=== PATIENT | female | born 1940 | race Caucasian/White ===

== ENCOUNTER 2017-12-08 15:51 | Inpatient (IN) | payer MEDICARE, BC ==
[~2017-12-08] VITALS: Ht 162.6 cm; Wt 60.3 kg
[2017-12-08] MEDS ORDERED: MORPHINE SULFATE 4 MG/ML SYR IV STA (15:52)
[2017-12-08] MEDS ORDERED: ONDANSETRON HCL 4 MG ORAL DISINTEGRATING TAB PO STA (15:52)
[2017-12-08] MEDS ORDERED: ULTRAM50 MG PO (16:07)
[2017-12-08] MEDS ORDERED: MORPHINE SULFATE 2 MG/ML SYR ONE (16:28)
[2017-12-08 16:50] LABS: BASOPHILS % 0.2 % (0.0-1.0); HEMOGLOBIN 13.1 g/dL (12.0-16.0); LYMPHOCYTES # (AUTO) 0.6 (1.0-3.2); LYMPHOCYTES % 4.5 % (18.0-39.1); MEAN CORPUSCULAR HEMOGLOBIN 29.2 pg (28-32); MEAN CORPUSCULAR HGB CONC 33.6 g/dL (31-35); MEAN CORPUSCULAR VOLUME 87.1 fL (81-99); MONOCYTES # (AUTO) 0.7 (0.2-0.8); MONOCYTES % 5.4 % (4.4-11.3); NEUTROPHILS # (AUTO) 11.6 (2.1-6.9); NEUTROPHILS % 89.4 % (38.7-80.0); PLATELET COUNT 243 x10e3/uL (140-360); RED BLOOD COUNT 4.48 x10e6/uL (3.6-5.1); RED CELL DISTRIBUTION WIDTH 12.7 % (11.7-14.4)
[2017-12-08 16:55] LABS: BILIRUBIN,URINE NEGATIVE (NEGATIVE); CLARITY,URINE SL CLOUDY (CLEAR); COLOR,URINE YELLOW (YELLOW); KETONES,URINE 1+ (NEGATIVE); LEUKOCYTE ESTERASE ,URINE NEGATIVE (NEGATIVE); NITRITE,URINE NEGATIVE (NEGATIVE); PROTEIN,URINE DIPSTICK NEGATIVE (NEGATIVE); URINE UROBILINOGEN 0.2 mg/dL (0.2 - 1)
[2017-12-08 16:56] LABS: INR 1.04; PARTIAL THROMBOPLASTIN TIME 28.9 seconds (23.8-35.5); PROTHROMBIN TIME 12.8 seconds (11.9-14.5)
[2017-12-08 17:06] LABS: ALANINE AMINOTRANSFERASE 14 IU/L (0-55); ALBUMIN 4.1 g/dL (3.5-5.0); ALBUMIN/GLOBULIN RATIO 1.1 (0.8-2.0); ALKALINE PHOSPHATASE 66 IU/L (40-150); ANION GAP 19.4 mmol/L (8-16); BLOOD UREA NITROGEN 13 mg/dL (7-26); BUN/CREATININE RATIO 16 (6-25); CALCIUM 9.9 mg/dL (8.4-10.2); CARBON DIOXIDE 19 mmol/L (22-29); CHLORIDE 101 mmol/L (98-107); CREATINE KINASE 92 IU/L (29-168); CREATININE, SERUM 0.79 mg/dL (0.57-1.11); EST GLOMERULAR FILTRATION RATE > 60 ML/MIN (60-); GLUCOSE 151 mg/dL (74-118); POTASSIUM 3.4 mmol/L (3.5-5.1); SODIUM 136 mmol/L (136-145)
[2017-12-08 17:07] LABS: BACTERIA,URINE FEW /HPF; RBC,URINE 0-5 /HPF (0-5)
[2017-12-08 17:08] LABS: MUCUS,URINE MODERATE (RARE)
--- NOTE | 2017-12-08 17:28 | Diagnostic Imaging Report ---
Examination: CT head without contrast Clinical Indication: Fall. Head injury. Technique: Transaxial noncontrast images from the skull base through the vertex were obtained. Sagittal and coronal reformatted images were done. Comparison: None. Findings: Scalp: No abnormalities. Bones: Intact. No fractures. No blastic or lytic lesions. Brain sulci: Moderate volume loss for age for patient's age. Ventricles: Normal in size and configuration. No hydrocephalus. . Extra-axial space: No abnormalities. Parenchyma: There are mild confluent areas of low-attenuation within subcortical and periventricular white matter, nonspecific, but could represent microvascular ischemic disease. No masses, hemorrhage, or acute or chronic cortical based vascular insults. Suprasellar region: No abnormalities. Craniocervical junction: The foramen magnum is patent. No Chiari one malformation. Incidental findings: Atherosclerotic calcification of the cavernous and supraclinoid internal carotid and V4 segments of the bilateral vertebral arteries. Impression: 1. No acute intracranial abnormality. 2. Mild chronic microvascular ischemic change and moderate volume loss for age. Signed by: Dr. Melly Cerna M.D. on 12/08/2017 5:25 PM
--- NOTE | 2017-12-08 17:30 | Diagnostic Imaging Report ---
PROCEDURE: A single AP view of the chest. COMPARISON: None. INDICATIONS: FALL FINDINGS: Lines/tubes: None. Lungs: Low lung volumes. There is no evidence of pneumonia or pulmonary edema. Pleura: There is no pleural effusion or pneumothorax. Heart and mediastinum: The heart and the mediastinum are unremarkable. Bones: No acute bony abnormality. IMPRESSION: 1. No acute cardiopulmonary disease. Dictated by: Jaret Colbert M.D. on 12/08/2017 at 17:33 Electronically approved by: Jaret Colbert M.D. on 12/08/2017 at 17:33
--- NOTE | 2017-12-08 17:33 | Diagnostic Imaging Report ---
PROCEDURE:X-RAY ABDOMEN - KUB COMPARISON:None. INDICATIONS:FALL FINDINGS: There is a non-obstructed bowel-gas pattern. No signs of pneumoperitoneum. There appears to be a nondisplaced fracture of the right femoral neck. CONCLUSION: Nondisplaced fracture of the right femoral neck. Please also correlate with dedicated hip x-rays. Nonobstructive bowel gas pattern. Dictated by: Jaret Colbert M.D. on 12/08/2017 at 17:36 Electronically approved by: Jaret Colbert M.D. on 12/08/2017 at 17:36
--- NOTE | 2017-12-08 17:33 | Diagnostic Imaging Report ---
Examination: CT CERVICAL SPINE WITHOUT CONTRAST HISTORY:Neck pain. Fall. COMPARISON:None. TECHNIQUE: Multidetector helical axial images were obtained without contrast from the foramen magnum to T1. Coronal and sagittal reformatted images were done. Bone and soft tissue windows were evaluated. FINDINGS: Alignment:Normal alignment and lordosis. Vertebrae: Normal height and density. No acute fracture, infection or neoplasm. Disc space heights: Severely narrowed at C5-C6. Caliber of spinal canal: Developmentally normal. Posterior fossa and craniocervical junction: Foramen magnum patent. No Chiari 1 malformation. Soft tissues: No abnormality. Degenerative changes: C3-C4: Mild left foraminal narrowing due to uncovertebral arthropathy. No degenerative disc or canal stenosis. C5-C6: Diffuse disc osteophyte complex and bilateral uncovertebral arthropathy result in severe bilateral foraminal stenosis and mild canal stenosis. The remaining levels demonstrate no disc bulge/ herniation or foraminal or canal stenosis. IMPRESSION: 1. No acute abnormalities. 2. Degenerative changes, as above. Signed by: Dr. Melly Cerna M.D. on 12/08/2017 5:29 PM
--- NOTE | 2017-12-08 17:39 | Diagnostic Imaging Report ---
PROCEDURE:HIPS BILAT TWO VWS(+/- PELVIS) INDICATION:Fall COMPARISON:None. FINDINGS: See conclusion. CONCLUSION: Nondisplaced fracture of the right femoral neck. Dictated by: Jaret Colbert M.D. on 12/08/2017 at 17:42 Electronically approved by: Jaret Colbert M.D. on 12/08/2017 at 17:42
[2017-12-08] MEDS ORDERED: ASPIRIN 81 MG CHEW TAB PO ONE (18:00)
[2017-12-08] MEDS ORDERED: SODIUM CHLORIDE FLUSH 10 ML SYR INJ PRN (18:00)
[2017-12-08] MEDS ORDERED: POTASSIUM CHLORIDE 10 MEQ TABCR PO ONE (18:15)
[2017-12-08] MEDS ORDERED: CEFAZOLIN SOD 1 GM/NS 50ML 100 ML IV ONE (19:00)
[2017-12-08] MEDS ORDERED: CEFAZOLIN SOD 1 GM VIAL IV SCH (19:30)
--- NOTE | 2017-12-08 19:39 | History and Physical ---
CHIEF COMPLAINT: Right hip pain. HISTORY OF PRESENT ILLNESS: This is a 77-year-old white woman who suffered a mechanical fall yesterday morning. The patient underwent x-ray of the hip which revealed a nondisplaced femoral neck fracture. The patient was seen by orthopedics, namely Dr. Mary Ann Valdez, who states that the patient is a candidate for screw fixation of the right femoral neck. T PAST MEDICAL HISTORY: The patient's only past medical history is dementia. In the emergency room, the patient was found to have a white blood cell count of 13,000 with 39% segmented neutrophils. The patient's chemistries were unremarkable except for potassium low at 3.4. The patient's B-natriuretic peptide level was elevated at 147. The patient's serum bicarbonate was low at 19. Urinalysis was unremarkable except it revealed 1+ blood and 1+ ketones. Chest x-ray was unremarkable. Right hip x-ray revealed nondisplaced femoral neck fracture. The patient underwent a cervical spine x-ray which revealed degenerative disk disease. The patient with CT of the head which did not reveal any acute intracranial pathology. The patient underwent 12-lead EKG in the emergency room which did not reveal any acute ischemic changes. REVIEW OF SYSTEMS GENERAL: No fever or chills. Weight has been stable. HEENT: No headaches; no visual changes. CARDIOVASCULAR: No chest pain, no shortness of breath or cough. It is unknown whether the patient had a syncopal event prior to fall. GI: No nausea, vomiting or constipation. : No urinary tract infection type symptoms. NEUROMUSCULAR: Complains of right hip pain. PAST SURGICAL HISTORY: Previous cosmetic surgery. FAMILY HISTORY: Noncontributory. SOCIAL HISTORY: She is but her spends a significant amount of his time traveling. The patient does have an adult nephew and [id number] that do look after the patient. No history of tobacco or alcohol use. ALLERGIES: NO KNOWN DRUG ALLERGIES. MEDICATIONS: None. PHYSICAL EXAMINATION VITAL SIGNS: Blood pressure 180/90, pulse 88, respiratory rate 16, oxygen saturation 98% on room air. Temperature 97.9. Height 5 feet, 6 inches; weight 135 pounds. BMI is 21. GENERAL: She is awake, alert and fully oriented and in no distress. She is pleasant and cooperative to the exam. She is oriented to herself, not time or place. She gets confused easily. INTEGUMENT: Skin is warm and dry. No pallor, jaundice, diaphoresis. HEENT: Anicteric sclerae with moist mucous membranes. NECK: Supple with no evidence of jugular venous distention. CARDIOVASCULAR: Distant heart sounds. Regular rate and rhythm. LUNGS: Benign. EXTREMITIES: There is length discrepancy in the lower extremities with the right being shorter than the left. NEUROLOGIC: No gross focal deficits appreciated. DIAGNOSES 1. Right femoral neck fracture (nondisplaced) secondary to mechanical fall. 2. Alzheimer's dementia. 3. Hypertensive heart disease. PLAN: 1. Pain control. 2. Consult orthopedics. 3. Scott's traction. 4. Blood pressure monitoring and control. 5. Tentative surgery tomorrow. I spent 45 minutes in the care of this patient. Job#: [id number] GH
--- OUTSIDE RECORDS SUMMARY | 2017-12-08 20:43 | XMS REPORT ---
Author Author [facility] Address Unknown Phone Unavailable Care Team Providers Care Turntable Engineer Name Role Phone JOCELYN STEVENS Unavailable Unavailable Problems This patient has no known problems. Allergies, Adverse Reactions, Alerts This patient has no known allergies or adverse reactions. Medications This patient has no known medications. Results Test Description Test Time Test Comments Text Results Atomic Results Result Comments ABDOMEN-1VIEW (KUB) [place] [address] Patient Name: LUIS MOODY MR #: [id number] : 1940 Age/Sex: 77/F Req #: [id number] Adm Physician: Ordered by: JOCELYN STEVENS DO Report #: [id number] Location: ER Room/Bed: Procedure: [id number] DX/ABDOMEN-1VIEW (KUB) Exam Date: Exam Time: REPORT STATUS: Signed PROCEDURE: X-RAY ABDOMEN - KUB COMPARISON: None. INDICATIONS: FALL FINDINGS: There is a non-obstructed bowel-gas pattern. No signs of pneumoperitoneum. There appears to be a nondisplaced fracture of the right femoral neck. CONCLUSION: Nondisplaced fracture of the right femoral neck. Please also correlate with dedicated hip x-rays. Nonobstructive bowel gas pattern. Dictated by: Jaret Jack M.D. on 12/08/2017 at 17:36 Electronically approved by: Jaret Jack M.D. on 12/08/2017 at 17:36 Dictated By: JARET JACK MD 35 Transcribed By: TAMI on 12/08/171735 COPY TO: JOCELYN STEVENS DO CT CERVICAL SPINE WO [place] [address] Patient Name: LUIS MOODY MR #: [id number] : 1940 Age/Sex: 77/F Req #: [id number] Adm Physician: Ordered by: JOCELYN STEVENS DO Report #: [id number] Location: ER Room/Bed: Procedure: [id number] CT/CT CERVICAL SPINE WO Exam Date: 12/08/17 Exam Time: 1658 REPORT STATUS: Signed Examination: CT CERVICAL SPINE WITHOUT CONTRAST HISTORY:Neck pain. Fall. COMPARISON: None. TECHNIQUE: Multidetector helical axial images were obtained without contrast from the foramen magnum to T1. Coronal and sagittal reformatted images were done. Bone and soft tissue windows were evaluated. FINDINGS : Alignment:Normal alignment and lordosis. Vertebrae: Normal height and density. No acute fracture, infection or neoplasm. Disc space heights: Severely narrowed at C5-C6. Caliber of spinal canal: Developmentally normal. Posterior fossa and craniocervical junction: Foramen magnum patent. No Chiari 1 malformation. Soft tissues: No abnormality. Degenerative changes: C3-C4: Mild left foraminal narrowing due to uncovertebral arthropathy. No degenerative disc or canal stenosis. C5-C6: Diffuse disc osteophyte complex and bilateral uncovertebral arthropathy result in severe bilateral foraminal stenosis and mild canal stenosis. The remaining levels demonstrate no disc bulge/ herniation or foraminal or canal stenosis. IMPRESSION: 1. No acute abnormalities. 2. Degenerative changes, as above. Signed by: Dr. Melly Cerna M.D. on 12/08/2017 5:29 PM Dictated By: MELLY STOVALL MD 28 Transcribed By: KEITH on 12/08/171728 COPY TO: JOCELYN STEVENS DO CT BRAIN WO [place] [address] Patient Name: LUIS MOODY MR #: [id number] : 1940 Age/Sex: 77/F Req #: [id number] Adm Physician: Ordered by: JOCELYN STEVENS DO Report #: [id number] Location: ER Room/Bed: Procedure: [id number] CT/CT BRAIN WO Exam Date: 12/08/17 Exam Time: 1658 REPORT STATUS: Signed Examination: CT head without contrast Clinical Indication: Fall. Head injury. Technique: Transaxial noncontrast images from the skull base through the vertex were obtained. Sagittal and coronal reformatted images were done. Comparison: None. Findings: Scalp: No abnormalities. Bones: Intact. No fractures. No blastic or lytic lesions. Brain sulci: Moderate volume loss for age for patient's age. Ventricles: Normal in size and configuration. No hydrocephalus. . Extra-axial space : No abnormalities. Parenchyma: There are mild confluent areas of low- attenuation within subcortical and periventricular white matter, nonspecific, but could represent microvascular ischemic disease. No masses, hemorrhage, or acute or chronic cortical based vascular insults. Suprasellar region: No abnormalities. Craniocervical junction: The foramen magnum is patent. No Chiari one malformation. Incidental findings: Atherosclerotic calcification of the cavernous and supraclinoid internal carotid and V4 segments of the bilateral vertebral arteries. Impression: 1. No acute intracranial abnormality. 2. Mild chronic microvascular ischemic change and moderate volume loss for age. Signed by: Dr. Melly Cerna M.D. on 12/08/2017 5:25 PM Dictated By: MELLY STOVALL MD 24 Transcribed By: KEITH on 12/08/171724 COPY TO: JOCELYN STEVENS DO CHEST SINGLE (PORTABLE) [place] [address] Patient Name: LUIS MOODY MR #: [id number] : 1940 Age/Sex: 77/F Req #: [id number] Adm Physician: Ordered by: JOCELYN STEVENS DO Report #: [id number] Location: ER Room/Bed: Procedure: [id number] DX/CHEST SINGLE (PORTABLE) Exam Date: Exam Time: REPORT STATUS: Signed PROCEDURE: A single AP view of the chest. COMPARISON: None. INDICATIONS: FALL FINDINGS: Lines/tubes: None. Lungs: Low lung volumes. There is no evidence of pneumonia or pulmonary edema. Pleura: There is no pleural effusion or pneumothorax. Heart and mediastinum: The heart and the mediastinum are unremarkable. Bones: No acute bony abnormality. IMPRESSION: 1. No acute cardiopulmonary disease. Dictated by: Jaret Jack M.D. on 12/08/2017 at 17:33 Electronically approved by: Jaret Jack M.D. on 12/08/2017 at 17:33 Dictated By: JARET JACK MD 32 Transcribed By: TAMI on 12/08/171732 COPY TO: JOCELYN STEVENS DO HIPS BILAT TWO VWS(+/- PELVIS) [place] [address] Patient Name: LUIS MOODY MR #: [id number] : 1940 Age/Sex: 77/F Req #: [id number] Adm Physician: Ordered by: JOCELYN STEVENS DO Report #: [id number] Location: ER Room/Bed: Procedure: [id number] DX/HIPS BILAT TWO VWS(+/- PELVIS) Exam Date: Exam Time: REPORT STATUS: Signed PROCEDURE: HIPS BILAT TWO VWS(+/- PELVIS) INDICATION: Fall COMPARISON: None. FINDINGS: See conclusion. CONCLUSION: Nondisplaced fracture of the right femoral neck. Dictated by: Jaret Jack M.D. on 2017 at 17:42 Electronically approved by: Jaret Jack M.D. on 2017 at 17:42 Dictated By: JARET JACK MD 41 Transcribed By: TAMI on 12/08/171741 COPY TO: JOCELYN STEVENS DO
[2017-12-08 21:00] VITALS: BP 174/75
[2017-12-08] MEDS ORDERED: ONDANSETRON HCL INJ 2 MG/ML VIAL IV PRN (22:15)
[2017-12-08] MEDS: MORPHINE SULFATE 2 MG/ML SYR IV PRN (22:30)
[2017-12-08 23:25] VITALS: BP 174/75
[2017-12-08 23:32] VITALS: BP 174/75
[2017-12-08] MEDS ORDERED: SODIUM CHLORIDE 0.9% 1000ML 1,000 ML IV SCH (23:59)
[2017-12-09] VITALS (7 sets, daily range): BP systolic 129–151; BP diastolic 61–78
[2017-12-09] MEDS: MORPHINE SULFATE 2 MG/ML SYR IV PRN (04:30)
[2017-12-09 06:30] LABS: BASOPHILS % 0.3 % (0.0-1.0); EOSINOPHILS % 0.3 % (0.0-6.0); HEMATOCRIT 36.1 % (34.2-44.1); HEMOGLOBIN 11.7 g/dL (12.0-16.0); LYMPHOCYTES # (AUTO) 1.1 (1.0-3.2); LYMPHOCYTES % 11.9 % (18.0-39.1); MEAN CORPUSCULAR HEMOGLOBIN 29.5 pg (28-32); MEAN CORPUSCULAR HGB CONC 32.4 g/dL (31-35); MEAN CORPUSCULAR VOLUME 91.2 fL (81-99); MONOCYTES # (AUTO) 0.7 (0.2-0.8); MONOCYTES % 7.4 % (4.4-11.3); NEUTROPHILS # (AUTO) 7.4 (2.1-6.9); PLATELET COUNT 184 x10e3/uL (140-360); RED BLOOD COUNT 3.96 x10e6/uL (3.6-5.1)
[2017-12-09 06:54] LABS: ANION GAP 11.8 mmol/L (8-16); BLOOD UREA NITROGEN 10 mg/dL (7-26); BUN/CREATININE RATIO 14 (6-25); CALCIUM 9.3 mg/dL (8.4-10.2); CARBON DIOXIDE 23 mmol/L (22-29); CHLORIDE 102 mmol/L (98-107); CHOL/HDL RATIO 3.2 (3.0-3.6); CHOLESTEROL 215 MD/DL (0-199); CREATININE, SERUM 0.72 mg/dL (0.57-1.11); EST GLOMERULAR FILTRATION RATE > 60 ML/MIN (60-); GLUCOSE 101 mg/dL (74-118); HDL CHOLESTEROL 67 MG/DL (40-60); LDL CHOLESTEROL 133 MG/DL (60-130); MAGNESIUM 1.6 MG/DL (1.3-2.1); PHOSPHORUS 3.1 MG/DL (2.3-4.7); POTASSIUM 3.8 mmol/L (3.5-5.1); SODIUM 133 mmol/L (136-145); TRIGLYCERIDES 77 MG/DL (0-149)
[2017-12-09 07:14] LABS: CREATINE KINASE MB 1.8 ng/mL (0-5.0)
[2017-12-09] MEDS ORDERED: BACITRACIN 50,000 UNIT VIAL ONE (10:59)
[2017-12-09] MEDS ORDERED: CEFAZOLIN SOD 1 GM VIAL ONE (11:47)
[2017-12-09] MEDS ORDERED: SODIUM CHLORIDE 0.9% 1000ML 1,000 ML IV SCH (12:48)
[2017-12-09] MEDS ORDERED: ONDANSETRON HCL INJ 2 MG/ML VIAL IV PRN (13:00)
[2017-12-09] MEDS ORDERED: FENTANYL CITRATE/PF 100MCG/2 ML INJ ONE ×2 (13:26→18:40)
[2017-12-09] MEDS ORDERED: CEFAZOLIN SOD 1 GM/NS 50ML 50 ML IV SCH (14:00)
[2017-12-09] MEDS ORDERED: CEFAZOLIN SOD 1 GM VIAL IV SCH ×2 (14:00→19:00)
--- NOTE | 2017-12-09 14:01 | Diagnostic Imaging Report ---
HIP RIGHT ONE VW (+/- PELVIS) HISTORY: Right hip pain today, postop. COMPARISON: None available. FINDINGS: Bones: ORIF of the right femur with three osseous screws without evidence of hardware fracture or loosening. Osseous alignment is within normal limits. Joints: Mild degenerative changes of the hips. Soft tissues: Postoperative changes in the right hip with subcutaneous emphysema and overlying skin stacy. IMPRESSION: Expected postoperative changes of the right hip without radiographic complication. Signed by: DR. Volodymyr Ortiz MD on 12/09/2017 1:58 PM
[2017-12-09] MEDS ORDERED: SEVOFLURANE INHAL SOLN 250 ML PEN BTL ONE (18:13)
[2017-12-09] MEDS ORDERED: LIDOCAINE HCL 2% LOCAL INJ 5 ML SDV VIAL INJ ONE (18:13)
[2017-12-09] MEDS ORDERED: PROPOFOL IV EMULSION 10 MG/ML 20 ML VIAL ONE (18:13)
[2017-12-09] MEDS ORDERED: ONDANSETRON HCL INJ 2 MG/ML VIAL ONE (18:13)
[2017-12-09] MEDS ORDERED: DEXAMETHASONE SOD PHOS INJ 4 MG/ML VIAL ONE (18:13)
[2017-12-09] MEDS: CEFAZOLIN SOD 1 GM VIAL IV SCH (20:51)
[2017-12-09] MEDS: TEMAZEPAM 15 MG CAP PO PRN (20:51)
[2017-12-10] VITALS (9 sets, daily range): BP systolic 118–167; BP diastolic 57–76
[2017-12-10] MEDS: HYDROCODONE/APAP 5MG-325MG TAB PO PRN ×2 (04:05→19:58)
[2017-12-10] MEDS: CEFAZOLIN SOD 1 GM VIAL IV SCH ×2 (04:10→12:30)
[2017-12-10 06:29] LABS: BASOPHILS % 0.4 % (0.0-1.0); EOSINOPHILS # (AUTO) 0.1 (0.0-0.4); EOSINOPHILS % 0.6 % (0.0-6.0); HEMATOCRIT 28.3 % (34.2-44.1); HEMOGLOBIN 9.4 g/dL (12.0-16.0); LYMPHOCYTES # (AUTO) 1.6 (1.0-3.2); LYMPHOCYTES % 18.3 % (18.0-39.1); MEAN CORPUSCULAR HEMOGLOBIN 29.2 pg (28-32); MEAN CORPUSCULAR HGB CONC 33.2 g/dL (31-35); MEAN CORPUSCULAR VOLUME 87.9 fL (81-99); MONOCYTES # (AUTO) 0.8 (0.2-0.8); NEUTROPHILS # (AUTO) 6.1 (2.1-6.9); NEUTROPHILS % 71.5 % (38.7-80.0); PLATELET COUNT 179 x10e3/uL (140-360); RED BLOOD COUNT 3.22 x10e6/uL (3.6-5.1); RED CELL DISTRIBUTION WIDTH 12.8 % (11.7-14.4)
[2017-12-10 07:06] LABS: ANION GAP 11.3 mmol/L (8-16); BLOOD UREA NITROGEN 12 mg/dL (7-26); BUN/CREATININE RATIO 17 (6-25); CALCIUM 8.4 mg/dL (8.4-10.2); CARBON DIOXIDE 23 mmol/L (22-29); CHLORIDE 104 mmol/L (98-107); CREATININE, SERUM 0.71 mg/dL (0.57-1.11); EST GLOMERULAR FILTRATION RATE > 60 ML/MIN (60-); GLUCOSE 98 mg/dL (74-118); POTASSIUM 3.3 mmol/L (3.5-5.1); SODIUM 135 mmol/L (136-145)
[2017-12-10] MEDS ORDERED: POTASSIUM CHLORIDE 10 MEQ TABCR PO ONE (12:00)
[2017-12-10] MEDS: RIVAROXABAN 10 MG TABLET PO SCH (17:09)
[2017-12-10] MEDS ORDERED: ONDANSETRON HCL 4 MG ORAL DISINTEGRATING TAB ONE (18:43)
[2017-12-10] MEDS ORDERED: ONDANSETRON HCL 4 MG ORAL DISINTEGRATING TAB PO PRN (19:00)
[2017-12-10] MEDS: TEMAZEPAM 15 MG CAP PO PRN (19:50)
[2017-12-11] VITALS (7 sets, daily range): BP systolic 140–155; BP diastolic 63–92
[2017-12-11] MEDS: HYDROCODONE/APAP 5MG-325MG TAB PO PRN ×3 (05:59→19:06)
[2017-12-11 06:57] LABS: BASOPHILS # (AUTO) 0.1 (0.0-0.1); BASOPHILS % 0.9 % (0.0-1.0); EOSINOPHILS # (AUTO) 0.3 (0.0-0.4); EOSINOPHILS % 3.7 % (0.0-6.0); HEMATOCRIT 30.2 % (34.2-44.1); HEMOGLOBIN 9.9 g/dL (12.0-16.0); LYMPHOCYTES # (AUTO) 1.5 (1.0-3.2); LYMPHOCYTES % 21.7 % (18.0-39.1); MEAN CORPUSCULAR HEMOGLOBIN 29.3 pg (28-32); MEAN CORPUSCULAR HGB CONC 32.8 g/dL (31-35); MEAN CORPUSCULAR VOLUME 89.3 fL (81-99); MONOCYTES # (AUTO) 0.7 (0.2-0.8); MONOCYTES % 9.7 % (4.4-11.3); NEUTROPHILS # (AUTO) 4.3 (2.1-6.9); NEUTROPHILS % 63.7 % (38.7-80.0); PLATELET COUNT 209 x10e3/uL (140-360); RED BLOOD COUNT 3.38 x10e6/uL (3.6-5.1); RED CELL DISTRIBUTION WIDTH 12.9 % (11.7-14.4)
[2017-12-11 07:23] LABS: ANION GAP 10.8 mmol/L (8-16); BLOOD UREA NITROGEN 11 mg/dL (7-26); BUN/CREATININE RATIO 15 (6-25); CALCIUM 8.5 mg/dL (8.4-10.2); CARBON DIOXIDE 27 mmol/L (22-29); CHLORIDE 105 mmol/L (98-107); CREATININE, SERUM 0.71 mg/dL (0.57-1.11); EST GLOMERULAR FILTRATION RATE > 60 ML/MIN (60-); GLUCOSE 98 mg/dL (74-118); POTASSIUM 3.8 mmol/L (3.5-5.1); SODIUM 139 mmol/L (136-145)
[2017-12-11] MEDS: RIVAROXABAN 10 MG TABLET PO SCH (16:57)
[2017-12-11] MEDS: TEMAZEPAM 15 MG CAP PO PRN (21:16)
[2017-12-12] VITALS: BP 151/79
[2017-12-12 04:00] VITALS: BP 179/80
[2017-12-12] MEDS: HYDROCODONE/APAP 5MG-325MG TAB PO PRN ×2 (06:30→12:24)
[2017-12-12 07:18] LABS: BASOPHILS % 0.3 % (0.0-1.0); EOSINOPHILS # (AUTO) 0.3 (0.0-0.4); EOSINOPHILS % 4.5 % (0.0-6.0); HEMOGLOBIN 10.1 g/dL (12.0-16.0); LYMPHOCYTES % 18.1 % (18.0-39.1); MEAN CORPUSCULAR HEMOGLOBIN 29.4 pg (28-32); MEAN CORPUSCULAR HGB CONC 32.6 g/dL (31-35); MEAN CORPUSCULAR VOLUME 90.1 fL (81-99); MONOCYTES # (AUTO) 0.5 (0.2-0.8); MONOCYTES % 9.2 % (4.4-11.3); NEUTROPHILS # (AUTO) 3.9 (2.1-6.9); NEUTROPHILS % 67.4 % (38.7-80.0); PLATELET COUNT 231 x10e3/uL (140-360); RED BLOOD COUNT 3.44 x10e6/uL (3.6-5.1); RED CELL DISTRIBUTION WIDTH 12.8 % (11.7-14.4)
[2017-12-12 07:30] VITALS: BP 179/80
[2017-12-12 07:35] LABS: ANION GAP 10.9 mmol/L (8-16); BLOOD UREA NITROGEN 10 mg/dL (7-26); BUN/CREATININE RATIO 15 (6-25); CALCIUM 8.9 mg/dL (8.4-10.2); CARBON DIOXIDE 30 mmol/L (22-29); CHLORIDE 102 mmol/L (98-107); CREATININE, SERUM 0.68 mg/dL (0.57-1.11); EST GLOMERULAR FILTRATION RATE > 60 ML/MIN (60-); GLUCOSE 109 mg/dL (74-118); POTASSIUM 3.9 mmol/L (3.5-5.1); SODIUM 139 mmol/L (136-145)
[2017-12-12 07:58] VITALS: BP 136/65
--- NOTE | 2017-12-12 08:42 | Discharge Summary ---
ADMITTING DIAGNOSES 1. Right femoral neck fracture secondary to mechanical fall. 2. Mild to moderate dementia. 3. Hypertension. DISCHARGE DIAGNOSES 1. Status post right femoral neck percutaneous screw placement. 2. Moderate dementia. 3. Hypertension. 4. Urinary retention, required Ogden catheter placement. HOSPITAL COURSE: This is a 77-year-old white woman who was initially admitted to [facility] with a diagnosis of right femoral neck fracture secondary to mechanical fall. During this hospitalization, the patient underwent successful right hip percutaneous screw placement to repair the femoral neck fracture. The surgery was performed by Dr. Valdez. The patient tolerated the surgery well. The patient's hospitalization was unremarkable. The patient did participate in physical therapy during this hospitalization, but she can only perform toe-touch weightbearing for the next 6 to 8 weeks as per orthopedic surgery's recommendations. The patient's hospitalization was unremarkable. The patient's condition on discharge was stable. The decision was made to transfer the patient to a senior care facility. The patient had a Ogden catheter placed during this hospitalization because of urinary retention. DISCHARGE MEDICATIONS 1. Tramadol 50 mg t.i.d. scheduled. 2. [employer] 5 per 325 one every 4 hours p.r.n. intense pain, 20 prescribed, no refills. 3. Temazepam 15 mg nightly p.r.n. for insomnia. 4. Xarelto 10 mg daily for 20 more days. FOLLOWUP INSTRUCTIONS: The decision was made to transfer this patient to a local senior care facility, namely [facility], where she could undergo daily physical therapy. YURIDIA LYON MD Job#: [id number] DANNA PULIDO
[2017-12-12 12:05] VITALS: BP 125/65
--- NOTE | 2017-12-12 12:40 | Operative Report ---
DATE OF PROCEDURE: December 08, 2017 PREOPERATIVE DIAGNOSIS: Impacted right femoral neck fracture. POSTOPERATIVE DIAGNOSIS: Impacted right femoral neck fracture. PROCEDURE PERFORMED: Patient underwent a closed reduction and percutaneous pinning of the right femoral neck fracture. SCHEDULING COORDINATOR: YESSY Lora ANESTHESIA: General endotracheal intubation anesthesia. IV FLUIDS: As per the anesthesia record. DESCRIPTION OF PROCEDURE: Ms. Schmidt was taken to the operating room and placed in the supine position on the operating table. Following induction of general anesthesia as well as endotracheal intubation, the patient's right lower extremity was examined under anesthesia. She was found to have bruising and ecchymosis over the lateral aspect of the hip. The patient's right lower extremity was placed in well-padded longitudinal traction, and the left lower extremity was placed in a well-padded lithotomy position. Fluoroscopic evaluation of the hip joint demonstrated an impacted femoral neck fracture. The hip was manipulated under anesthesia, and the alignment of the hip was improved. The patient's thigh and flank were then prepped and draped in standard surgical fashion. An incision was created over the lateral aspect of the hip, and this incision was deepened to the level of the lateral side of the femur. Three pins were then inserted from lateral to medial through the neck into the head of the femur across the patient's fracture site. The positions of those pins were then checked using fluoroscopy and found to be appropriate. Measurements were taken, and implants were chosen. Screws were then passed over the pins, and compression was visualized across the patient's fracture site. The hip was again imaged fluoroscopically in both AP and lateral plane and found to be appropriate. The wound was copiously irrigated and closed in a multilayer fashion. Sterile dressings were applied, and the patient was then awakened and taken to the postanesthetic care unit in stable condition. Paul Ryder acted as the list of first job ideas for this case and was necessary for both the prepping and draping of the patient, positioning of the patient on the fracture table, as well as the retraction of soft tissues and closures of wounds that allowed this case to be successful. Job#: [id number]
[2017-12-12] MEDS ORDERED: HYDROCODONE/APAP 5MG-325MG TAB PO PRN (13:30)
[2017-12-12] MEDS ORDERED: TRAMADOL HCL 50 MG TAB PO SCH (15:00)
[2017-12-12] MEDS ORDERED: TEMAZEPAM 15 MG CAP PO SCH (21:00)
== END 2017-12-12 14:45 | DRG 481 ==
LOC: ER 15:51 → MED/SURG 20:40
PROVIDERS: ADMIT Internal Medicine; ATTEND Internal Medicine
PROC: 0QS806Z Reposition Right Femoral Shaft with Intramedullary Internal Fixation Device, Open Approach (ICD-10-PCS; principal; 2017-12-08)
DX: S72.001A Fracture of unspecified part of neck of right femur, initial encounter for closed fracture (principal); N39.0 Urinary tract infection, site not specified; R33.9 Retention of urine, unspecified; W19.XXXA Unspecified fall, initial encounter; M50.30 Other cervical disc degeneration, unspecified cervical region; G30.9 Alzheimer's disease, unspecified; F02.80 Dementia in other diseases classified elsewhere, unspecified severity, without behavioral disturbance, psychotic disturbance, mood disturbance, and anxiety; I11.9 Hypertensive heart disease without heart failure; G47.00 Insomnia, unspecified
CPT/HCPCS: 36415; 51700; 70450; 71045; 72125; 73521; 74018; 76000; 80048; 80053; 80061; 81001; 82550; 82553; 83735; 83880; 84100; 84484; 85025; 85610; 85730; 86850; 86900; 93005; 97139; 99284; C1713; J0690; J1100; J2001; J2270; J2405; J7030

== ENCOUNTER 2019-03-12 09:18 | Inpatient (IN) | payer MEDICARE, BC ==
[~2019-03-12] VITALS: Ht 162.6 cm; Wt 60.3 kg
[~2019-03-12 09:18] MED LIST: ULTRAM50 MG PO
[2019-03-12] MEDS ORDERED: ONDANSETRON HCL INJ 2MG/ML 2ML 2 MG/ML VIAL IV STA (09:37)
[2019-03-12] MEDS ORDERED: MORPHINE SULFATE 2 MG/ML SYR 1ML IV STA (09:37)
--- NOTE | 2019-03-12 11:06 | Diagnostic Imaging Report ---
EXAMINATION: Head and cervical spine CT without contrast. HISTORY: Status post fall, altered mental status, trauma, pain COMPARISON: None. TECHNIQUE: Multidetector axial images were obtained without contrast from the foramen magnum to the vertex and through the cervical spine. The images were reconstructed using brain and bone algorithms. Thin section brain images were reformatted into coronal and sagittal planes. Dose modulation, iterative reconstruction, and/or weight based adjustment of the mA/kV was utilized to reduce the radiation dose to as low as reasonably achievable. HEAD CT FINDINGS: Skull/scalp: No lytic or blastic lesions. No fractures. Parenchyma: History of matter hyperdensities, most likely nonspecific chronic microvascular ischemic changes. No mass, hemorrhage or CT evidence of acute vascular insult. Brain volume: Generalized volume loss, with particular prominence of the parietal sulci, bilateral temporal horns and bilateral hippocampal atrophy, which can be seen in patient's with Alzheimer's disease in the correct clinical setting. Ventricles: No hydrocephalus or displacement. Arteries: No density suggestive of thrombus. Dural sinuses: No abnormal density. Extra-axial spaces: No abnormal density. Foramen magnum: No mass, Chiari malformation, or basilar invagination. Sella: No obvious mass. Paranasal/mastoid sinuses: Imaged portions unremarkable. CERVICAL SPINE CT FINDINGS: Alignment:Normal alignment and lordosis. Soft tissues: Subcentimeter hypodense nodule in the right lobe of the thyroid gland which is does not require further follow-up. Vertebrae: Normal height and density. No acute fracture, infection or neoplasm. Degenerative changes: C1-C2: Degenerative changes without stenosis C2-C3: Mild facet arthrosis without stenosis C3-C4: Uncovertebral and facet arthrosis minimal left results in moderately severe left foraminal stenosis. C4-C5: Bilateral facet arthrosis without canal or foraminal stenoses C5-C6: Disc osteophyte complex formation, bilateral uncovertebral and facet arthrosis. Mild spinal canal and severe bilateral foraminal stenoses. C6-C7: Bilateral facet arthroses without significant stenoses. C7-T1: Normal IMPRESSION: Head CT: 1. No acute posttraumatic intracranial abnormalities, particularly no hemorrhage. 2. Mild chronic microvascular ischemic changes. Cervical spine CT: 1. No acute fractures or dislocations. 2. Chronic degenerative changes as described. Note: Acute post traumatic spinal cord, vascular or ligamentous injury cannot adequately be assessed with CT. Signed by: Dr. Maria De Jesus Aparicio M.D. on 03/12/2019 11:02 AM
--- NOTE | 2019-03-12 11:31 | Diagnostic Imaging Report ---
EXAM: FEMUR 2 VIEWS MINIMUM LEFT, HIP LEFT 2-3 VW (+/- PELVIS) DATE: 03/12/2019 9:37 AM INDICATION: Fall COMPARISON: Pelvic radiograph from 12/09/2017 FINDINGS: There is a mildly comminuted, displaced fracture of the left femoral neck. The femoral head is maintained within the acetabulum. The remainder of the right femur is otherwise intact. There is stable appearing hardware identified within the proximal right femur. Are stable degenerative changes of the pelvis. The visualized intraperitoneal contents are unremarkable. IMPRESSION: Acute appearing fracture of the left femoral neck as above. Signed by: Dr. Arden Varela MD on 03/12/2019 11:27 AM
--- NOTE | 2019-03-12 11:31 | NUR ---
per pt he does not want iv insertion or straight cath done at this time he would prefer to wait till Dr Valdez appears to see if it is necessary he does not want his to suffer
--- NOTE | 2019-03-12 11:33 | Diagnostic Imaging Report ---
EXAM: CHEST SINGLE (NOT PORTABLE) DATE: 03/12/2019 9:37 AM INDICATION: Fall COMPARISON: None FINDINGS: The trachea is midline. There are mild bibasilar opacities which are suggestive of atelectasis/scarring. There is no evidence for large focal consolidation, pneumothorax, or significant pleural effusion. The cardiomediastinal silhouette is within normal limits. No acute osseous abnormality is identified. IMPRESSION: No acute cardiopulmonary process identified. Signed by: Dr. Arden Varela MD on 03/12/2019 11:29 AM
[2019-03-12] MEDS ORDERED: SODIUM CHLORIDE 0.9% 1000ML 1,000 ML IV SCH (11:46)
[2019-03-12] MEDS ORDERED: ONDANSETRON HCL INJ 2MG/ML 2ML 2 MG/ML VIAL IV PRN (12:00)
[2019-03-12] MEDS ORDERED: MORPHINE SULFATE 2 MG/ML SYR 1ML IV PRN (12:00)
--- NOTE | 2019-03-12 12:00 | NUR ---
pt arrived to unit via stretcher resp even and unlabored family member at bedside, pt in no distress noted, pt in bed rails up times 2, bed in lowest position.
--- NOTE | 2019-03-12 12:10 | NUR ---
PATIENT SPOUSE REQUESTING TO WAIT FOR IV AND BLOOD WORK UNTIL DR EL EVALUATES HER.
--- NOTE | 2019-03-12 12:15 | NUR ---
pt has pure wick in place, tolerated well.
--- NOTE | 2019-03-12 13:24 | NUR ---
Call and spoke to DARREN Gregory with Dr. Dick and informed of the plan of care per spouse. Spouse and Dr. reynaga were on the phone and no surgery will be done. Mr. Schmidt would prefer his go back [facility] under the hospice care that she was originally under. Informed case management
[2019-03-12 13:30] VITALS: BP 182/86
--- NOTE | 2019-03-12 13:45 | NUR ---
Spoke with Alexandra at [facility]. She informed that [facility] is under [facility]. Informed case management
--- NOTE | 2019-03-12 14:15 | NUR ---
Visit made by the Spiritual Care Department Pastoral Visitor, Wanda Collins. PV provided pastoral presence, prayer, hospitality, and supportive listening. Pastoral Visitor informed pt/family of the scope of Special Events Assistant Services and availability. LINDY ABEL Back Strip Machine Operator Spiritual Care Department O: [phone] Pager: [phone] ([phone] number calling from)
[2019-03-12 14:21] VITALS: BP 182/86
[2019-03-12] MEDS ORDERED: MORPHINE SULFATE ORAL SOLN 10 MG/5 ML UDC PO PRN (14:45)
--- NOTE | 2019-03-12 15:43 | NUR ---
CALLED DAUGHTER IN LAW AND GOT AUTH FOR AMBULANCE TRANSPORT BACK TO THE [facility] [address] [facility], [place] [address]
--- NOTE | 2019-03-12 15:44 | NUR ---
Call placed to Alexandra at the [facility] and informed that patient would be discharging back to the [facility]. Ambulance to be called right now
--- NOTE | 2019-03-12 15:50 | NUR ---
[facility] was called for transport. Informed that patient had to be at the [facility] by 1700.
--- NOTE | 2019-03-12 16:09 | History and Physical ---
ADMISSION HISTORY AND PHYSICAL, SHORT-STAY, AND DISCHARGE SUMMARY ADMITTING DIAGNOSES: 1. Status post fall with left femoral neck fracture. 2. Dementia. 3. Hypertension. 4. History of deep venous thrombosis. DISCHARGE DIAGNOSES: 1. Status post fall with left femoral neck fracture. 2. Dementia. 3. Hypertension. 4. History of deep venous thrombosis. BRIEF HISTORY: Ms. Schmidt is an 79-year-old lady, who lives at an assisted living facility. She apparently fell 2 weeks ago out of bed. She is mostly bedridden and she did have an x-ray done yesterday at the assisted living facility that showed a left hip fracture. The patient was sent to the hospital for evaluation. REVIEW OF SYSTEMS: The patient is unable to give review due to dementia. PAST MEDICAL HISTORY: Significant for hypertension, dementia, anemia, and history of DVT. MEDICATIONS: The only medication she is taking currently is tramadol. ALLERGIES: SHE HAS NO KNOWN DRUG ALLERGIES. PHYSICAL EXAMINATION: GENERAL: She is awake and alert. She is disoriented and confused. VITAL SIGNS: Her vital signs are as follows; blood pressure 173/95, pulse rate 94 and regular, respiratory rate 20, O2 saturation 96%, and temperature 98.2. HEENT: Her head is atraumatic. NECK: Supple with no mass or thyromegaly. CARDIOVASCULAR: Reveals a regular rate and rhythm without murmur or extra heart sound. She has no carotid bruit. RESPIRATORY: Lungs are clear to auscultation percussion with normal respiratory effort. GASTROINTESTINAL: Abdomen is soft without organomegaly, masses, or tenderness. MUSCULOSKELETAL: Joints are in normal alignment. She is tender with any movement of the left hip. There is some lateral angulation. NEUROLOGIC: Nonfocal. The patient is confused, but moves all extremities. LABORATORY STUDIES: CT of the head shows no post-traumatic intracranial abnormalities, some microvascular changes. Cervical spine shows no fracture or dislocation. There are chronic degenerative changes. Her left hip shows a left femoral neck fracture with hardware noted in the right femur. Chest x-ray shows no acute disease process. CBC; shows a white count of 5.7, hemoglobin 10.1, hematocrit 31.0, and platelet count 231,000. Most recent chemistry, sodium 139, potassium 3.9, chloride 102, CO2 of 30, BUN 10, creatinine 0.68 for a normal GFR, glucose is 109, calcium 8.9. Transaminases, alkaline phosphatase were normal. Bilirubin slightly elevated at 1.4. Magnesium 1.6. IMPRESSION: 1. Displaced left femoral neck fracture. 2. Hypertension, not well controlled. 3. Advanced senile dementia. HOSPITAL COURSE: The patient was admitted overnight. She was seen by Dr. Hernandez, who had discussion with the family in view of her bedridden state and nonambulatory status, and the patient is already on hospice care. Dr. Hernandez, the orthopedic surgeon, elected not to do any surgery, which the family agrees with and is requesting discharge back to the assisted living facility to continue with hospice care, the orders were done and the patient will be sent back today. MD LYNN Loza/RYANN /[id number]
--- NOTE | 2019-03-12 16:28 | NUR ---
pt given 2.5 mg po morphine for left hip fx pain to travel via ambulance service.
[2019-03-12 16:39] VITALS: BP 182/74
--- NOTE | 2019-03-12 17:03 | NUR ---
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
== END 2019-03-12 17:15 | DRG 536 ==
LOC: ER 09:18 → ERHOLD 11:46 → MED/SURG 12:40
PROVIDERS: ADMIT Internal Medicine; ATTEND Internal Medicine
DX: S72.002A Fracture of unspecified part of neck of left femur, initial encounter for closed fracture (principal); W19.XXXA Unspecified fall, initial encounter; Y92.009 Unspecified place in unspecified non-institutional (private) residence as the place of occurrence of the external cause; F03.90 Unspecified dementia, unspecified severity, without behavioral disturbance, psychotic disturbance, mood disturbance, and anxiety; I10 Essential (primary) hypertension; Z86.718 Personal history of other venous thrombosis and embolism; Z79.01 Long term (current) use of anticoagulants; Z74.01 Bed confinement status; R26.9 Unspecified abnormalities of gait and mobility; Z66 Do not resuscitate; W08.XXXA Fall from other furniture, initial encounter
CPT/HCPCS: 70450; 71045; 72125; 93005; 99284